=== PATIENT | female | born 1980 | race Caucasian/White ===

== ENCOUNTER 2018-04-16 10:04 | Inpatient (IN) | payer OTHER ==
[2018-04-16] MEDS ORDERED: MINERAL OIL PO PRN (10:43)
[2018-04-16] MEDS ORDERED: AMPICILLIN/NS 2 GM/100 ML 2 GM/100 ML BAG IV ONE (10:43)
[2018-04-16] MEDS ORDERED: STADOL IV PRN (10:43)
[2018-04-16] MEDS ORDERED: XYLOCAINE 2% INFILTRATI ONE (10:43)
[2018-04-16] MEDS ORDERED: BRETHINE IVP PRN (10:43)
[2018-04-16] MEDS ORDERED: BRETHINE SUB-Q PRN (10:43)
[2018-04-16] MEDS ORDERED: ZOFRAN IV PRN ×2 (10:50→21:12)
[2018-04-16] MEDS ORDERED: PITOCin/NS 20 UNIT/1000ML DRIP 20 UNITS/1,000 ML BAG IV SCH ×2 (11:00→19:00)
[2018-04-16] MEDS ORDERED: PITOCin/NS 30 UNIT/500ML 30 UNITS/500 ML BAG IV SCH (11:00)
[2018-04-16] MEDS ORDERED: LACTATED RINGERS 1,000 ML IV SCH ×2 (11:00→19:00)
[2018-04-16 11:13] LABS: Hematocrit 36.2 % (30.3-42.9); Hemoglobin 12.2 gm/dl (10.1-14.3); Mean Corpuscular HGB Conc 34 % (30-34); Mean Corpuscular Volume 84 fl (79-97); Platelet Count 162 K/mm3 (140-440); Red Blood Count 4.29 M/mm3 (3.65-5.03); Red Cell Distribution Width 15.8 % (13.2-15.2)
--- NOTE | 2018-04-16 11:14 | History and Physical Report ---
History of Present Illness Date of examination: 04/16/18 Date of admission: 04/16/18 10:37 Chief complaint: SROM History of present illness: 38 yo, @ 38.6 wks gestation, pt of [facility], presenting to [facility] for gross SROM at approx 1030. She has limited PNC, presenting for NOB @ 29 wks gestation. Her has been complicated by AMA and GBS positive status. She has a history of stillborn @ 36 wks gestation in 2004. Her medical and family history is otherwise non-contributory. Blood type: O positive. Past History Past Medical History: asthma (Childhood) Past Surgical History: no surgical history Family/Genetic History: none Social history: no significant social history, lives with family - Obstetrical History Expected Date of Delivery: 04/24/18 Actual Gestation: 38 Week(s) 6 Day(s) : 10 Para: 8 Hx # Term Pregnancies: 9 Number of Pregnancies: 0 Spontaneous Abortions: 0 Induced : 0 Number of Living Children: 8 #1 Infant Gender: Male year: 1,988 Method of Delivery: Vaginal Gestational age at delivery: 40 Complications: none #2 Gender: Male year: 1,999 Method of Delivery: Vaginal Gestational age at delivery: 40 Complications: none #3 Gender: Female year: 1,999 Method of Delivery: Vaginal Gestational age at delivery: 40 Complications: none #4 Infant Gender: Female year: 2,004 Method of Delivery: Vaginal Complications: none #5 Gender: Female year: 2,005 Method of Delivery: Vaginal Gestational age at delivery: 36 Complications: other (stillborn) #6 Infant Gender: Female year: 2,008 Method of Delivery: Vaginal Gestational age at delivery: 40 Complications: none #7 Infant Gender: Female year: 2,010 Method of Delivery: Vaginal Gestational age at delivery: 40 Complications: none #8 Infant Gender: Male year: 2,015 Method of Delivery: Vaginal Gestational age at delivery: 40 Complications: none #9 Infant Gender: Female year: 2,016 Method of Delivery: Vaginal Gestational age at delivery: 40 Medications and Allergies Allergies Allergy/AdvReac Type Severity Reaction Status Date / Time No Known Allergies Allergy Unverified 04/16/18 10:42 Active Meds: Active Medications Butorphanol Tartrate (Stadol) 2 mg IV Q2H PRN PRN Reason: Pain , Severe (7-10) Ephedrine Sulfate (Ephedrine Sulfate) 10 mg IV Q2M PRN PRN Reason: Hypotension Ampicillin Sodium (Polycillin/Ns 2 Gm/100 Ml) 2 gm in 100 mls @ 100 mls/hr IV ONCE ONE; Protocol Stop: 04/16/18 11:42 Lactated Ringer's (Lactated Ringers) 1,000 mls @ 125 mls/hr IV DIRECT ESTHER Oxytocin/Sodium Chloride (Pitocin/Ns 20 Unit/1000ml Drip) 20 units in 1,000 mls @ 125 mls/hr IV DIRECT ESTHER Oxytocin/Sodium Chloride (Pitocin/Ns 30 Unit/500ml) 30 units in 500 mls @ 1 mls/hr IV TITR ESTHER; Protocol Mineral Oil (Mineral Oil) 30 ml PO QHS PRN PRN Reason: Constipation Ondansetron HCl (Zofran) 4 mg IV Q8H PRN PRN Reason: Nausea And Vomiting Terbutaline Sulfate (Brethine) 0.25 mg SUB-Q ONCE PRN PRN Reason: Hyperstimulation/Hypertonicity Terbutaline Sulfate (Brethine) 0.25 mg IVP ONCE PRN PRN Reason: Hyperstimulation/Hypertonicity Review of Systems All systems: negative (ctxs) Gastrointestinal: other (painful ctxs) - Physical Exam Breasts: Positive: deferred Cardiovascular: Regular rate Lungs: Positive: Clear to auscultation, Normal air movement Abdomen: Positive: other (gravid) Genitourinary (Female): Positive: normal external genitalia, normal perenium Vagina: Positive: other (moderate amt of clear fluids) Uterus: Positive: other (gravid, S=D) Extremities: Positive: normal Deep Tendon Reflex Grade: Normal +2 - Obstetrical FHR: category 1 Uterine Contraction Monitor Mode: External Uterine Contraction Pattern: Irregular Uterine Tone Measurement Phase: Resting Uterine Contraction Intensity: Mild Results Result Diagrams: 04/16/18 10:54 All other labs normal. Assessment and Plan A: 38 yo, @ 38.6 wks gestation AMA O + blood type SROM GBS positive P: Admit to [facility] Initiate GBS protocol per policy Pitocin augmentation Epidural as desired Anticipate normal spontaneous delivery - Patient Problems (1) SROM (spontaneous rupture of membranes) Current Visit: Yes Status: Acute (2) AMA (advanced maternal age) multigravida 35+ Current Visit: Yes Status: Acute (3) Positive GBS test Current Visit: Yes Status: Acute
[2018-04-16] MEDS ORDERED: NARCAN 2 MG/2 ML IV PRN (15:31)
--- NOTE | 2018-04-16 15:31 | Anesthesia Consultation ---
Anesthesia Consult and Med Hx Date of service: 04/16/18 - Airway Anesthetic Teeth Evaluation: Good ROM Head & Neck: Adequate Mental/Hyoid Distance: Adequate Mallampati Class: Class II Intubation Access Assessment: Probably Good - Pre-Operative Health Status ASA Pre-Surgery Classification: ASA2 Proposed Anesthetic Plan: Epidural, Spinal - Pulmonary Hx Asthma: No - Cardiovascular System Hx Hypertension: No - Central Nervous System Hx Seizures: No Hx Psychiatric Problems: No - Endocrine Hx Renal Disease: No Hx Hypothyroidism: No Hx Hyperthyroidism: No - Hematic Hx Sickle Cell Disease: No - Other Systems Hx Alcohol Use: No
[2018-04-16] MEDS ORDERED: fentaNYL-BUPIV 2 MCG/ML-0.125% 200 MCG/100 ML BAG EPIDURAL SCH (16:00)
[2018-04-16] MEDS ORDERED: AMPICILLIN/NS 1 GM/50 ML 1 GM/50 ML BAG IV SCH (17:30)
[2018-04-16] MEDS ORDERED: TYLENOL PO ONE (17:56)
--- NOTE | 2018-04-16 17:58 | Event Note ---
Date: 04/16/18 Arrived at hospital and assumed care of patient at 17:35. Variable FHR decelerations noted with minimal to moderate FHR variability. SVE 9/90/-1. IUPC placed for amnioinfusion. Patient positioned in lateral position and oxygen per face mask at 10 LPM. Pitocin is off. Contractions are every 2-3 minutes and uterus palpates soft between contractions. Temp. 99.5 orally. Tylenol po ordered. BPs stable. Will observe closely.
[2018-04-16] MEDS ORDERED: NACL 0.9% 1000 ML 1,000 ML VG SCH (18:00)
[2018-04-16] MEDS ORDERED: NACL 0.9% IV SCH (18:15)
[2018-04-16] MEDS ORDERED: GENTAMICIN IV SCH (18:15)
--- NOTE | 2018-04-16 18:28 | Event Note ---
Date: 04/16/18 FSE has been placed to better evaluate heart rate. Consulted with Dr. Velazquez re: FHR tracing; variable FHR decelerations and minimal FHR variability and interventions taken (amnioinfusion, lateral positioning, and oxygen). Patient has also received IV fluid bolus. No improvement in heart rate. section called by Dr. Velazquez. heart rate tracing and need for section was explained to patient and family via language line franchise development manager. Patient states she is willing to have section due to heart rate tracing. Orders put in and team notified.
[2018-04-16] MEDS ORDERED: BRETHINE SUB-Q ONE (18:45)
[2018-04-16] MEDS ORDERED: GENTAMICIN/NS 80 MG/100 ML 100 ML IV SCH (19:00)
[2018-04-16] MEDS ORDERED: PEPCID IV ONE (19:00)
[2018-04-16] MEDS ORDERED: REGLAN IV ONE (19:00)
[2018-04-16] MEDS ORDERED: ANCEF/STERILE WATER 2 GM/20 ML 2 GM/20 ML SYRINGE IV NR (19:00)
[2018-04-16] MEDS ORDERED: BICITRA PO ONE (19:00)
[2018-04-16] MEDS ORDERED: METHERGINE IM ONE (19:13)
--- NOTE | 2018-04-16 19:37 | Procedure Note ---
OB Delivery Note - Delivery Date of Delivery: 04/16/18 Surgeon: THERESA VELAZQUEZ Waiter: THU BARBER Estimated blood loss: 200cc - Vaginal Delivery presentation: vertex Delivery position: OA Intrapartum events: mult.variable deceleratio Delivery augmentation: pitocin Delivery monitor: external FHT, external uterine, internal FHT, internal uterine Route of delivery: vacuum extraction Indicators for instrumentation: nonreassuring FHR tracing Delivery placenta: spontaneous Delivery cord: 3 umbilical vessels Episiotomy: none Delivery laceration: none Anesthesia: epidural Delivery comments: Patient was being prepared for section due to heart rate tracing nonreassuring. She began pushing. SVE anterior lip. Dr. Velazquez notified of cervical change and strong urge to push. Patient progressed to complete and vacuum assisted vaginal delivery performed by Dr. Greg Velazquez. Time of 19:17. NICU present for delivery. weight 7 lb. 4 oz. Apgars 7/9. Spontaneous delivery of intact placenta and membranes by gardner mechanism. EBL 200 cc. Fundus firm and midline. Pitocin to IV fluids after delivery of placenta. No lacerations noted. Vaginal sweep negative. Sponge count correct. Cord blood obtained. Placenta to path.
[2018-04-16] MEDS ORDERED: PHENERGAN PO PRN (21:12)
[2018-04-16] MEDS ORDERED: DULCOLAX PR PRN (21:12)
[2018-04-16] MEDS ORDERED: PHENERGAN PR PRN (21:12)
[2018-04-16] MEDS ORDERED: LANSINOH TP PRN (21:12)
[2018-04-16] MEDS ORDERED: TUCKS PAD TP PRN (21:12)
[2018-04-16] MEDS ORDERED: NORCO 5/325 PO PRN (21:12)
[2018-04-16] MEDS ORDERED: BENADRYL PO PRN (21:12)
[2018-04-16] MEDS ORDERED: MILK OF MAGNESIA PO PRN (21:12)
[2018-04-16] MEDS ORDERED: IBUPROFEN PO ONE (21:15)
[2018-04-16] MEDS ORDERED: SODIUM CHLORIDE FLUSH SYRINGE 10 ML IV NR (22:00)
[2018-04-17] MEDS: IBUPROFEN PO SCH ×3 (05:20→18:00)
[2018-04-17 10:38] LABS: Hematocrit 32.6 % (30.3-42.9)
--- NOTE | 2018-04-17 12:43 | Progress Note ---
Assessment and Plan A: day 1 S/P VAVD. P: Continue current management. Anticipate discharge tomorrow. Subjective - Subjective Date of service: 04/17/18 Principal diagnosis: day 1 S/P VAVD Interval history: day 1 S/P VAVD. Doing well. Patient reports small amount of lochia. Voiding without difficulty, ambulating well, tolerating a regular diet. Patient denies headache, cough, chest pain, shortness of breath, leg pain, or abdominal pain. Patient reports: appetite normal, voiding normally, pain well controlled, flatus, ambulating normally, no dizzy ambulation, no nauseated : doing well Objective - Vital Signs Latest vital signs: Vital Signs Temp Pulse Resp BP BP Pulse Ox 04/17/18 08:05 98.1 F 67 20 93/57 04/17/18 06:17 98.3 F 61 18 100/58 99 04/16/18 22:57 98.4 F 71 18 127/69 97 04/16/18 20:56 82 109/68 04/16/18 20:41 86 108/71 04/16/18 20:27 83 114/58 04/16/18 20:26 77 125/62 04/16/18 20:11 79 128/66 04/16/18 19:56 80 120/62 04/16/18 19:41 85 111/57 04/16/18 19:26 88 117/59 04/16/18 18:53 93 H 128/69 04/16/18 18:39 87 122/66 04/16/18 18:23 79 108/52 04/16/18 18:08 82 120/57 04/16/18 17:54 102 H 112/70 04/16/18 17:46 99.5 F 04/16/18 17:39 80 113/65 04/16/18 17:25 86 118/73 04/16/18 17:21 97.2 F L 04/16/18 17:09 85 115/67 04/16/18 16:48 81 115/74 04/16/18 16:38 71 93/54 04/16/18 16:24 102 H 85/51 04/16/18 16:20 87 100 04/16/18 16:15 111 H 98 04/16/18 16:10 104 H 98 04/16/18 16:07 86 101/62 04/16/18 16:05 102 H 104/65 99 04/16/18 16:03 99 H 104/68 04/16/18 16:01 107 H 104/67 04/16/18 16:00 91 H 98 04/16/18 15:59 109 H 102/68 04/16/18 15:57 76 119/66 04/16/18 15:55 87 121/64 98 04/16/18 15:53 86 123/68 04/16/18 15:51 85 123/68 04/16/18 15:50 83 98 04/16/18 15:49 90 127/71 04/16/18 15:47 95 H 124/71 04/16/18 15:46 79 169/77 04/16/18 15:45 72 98 04/16/18 15:43 82 138/72 04/16/18 15:41 98 H 126/69 04/16/18 15:40 91 H 98 04/16/18 15:39 101 H 135/71 04/16/18 15:37 94 H 145/83 04/16/18 15:35 88 98 04/16/18 15:30 91 H 132/81 04/16/18 15:17 90 128/83 04/16/18 15:00 97 H 132/74 04/16/18 14:46 98 H 135/72 04/16/18 14:30 91 H 115/73 04/16/18 14:15 91 H 109/58 04/16/18 14:00 98.6 F 89 125/69 04/16/18 13:46 94 H 116/66 04/16/18 13:32 93 H 120/68 04/16/18 13:15 98 H 113/71 04/16/18 13:00 93 H 116/74 04/16/18 12:45 99 H 118/70 Intake and Output 04/16/18 04/17/18 04/17/18 23:59 07:59 15:59 Intake Total 360 Balance 360 Intake: Oral 360 Other: Total, Intake Amount 360 Estimated Blood Loss 200 - Exam Abdomen: Present: normal appearance, soft. Absent: distention, tenderness, guarding, rigidity Uterus: Present: normal, firm, fundal height below umbilicus. Absent: bogginess, tenderness Extremities: Present: normal. Absent: tenderness, edema
[2018-04-18] MEDS: IBUPROFEN PO SCH ×3 (00:54→12:54)
--- NOTE | 2018-04-18 13:46 | Progress Note ---
Assessment and Plan A: day 2 S/P vacuum assisted vaginal delivery. P: Discharge patient home today. discharge instructions and warning signs discussed with patient in detail. Advised patient to continue taking her vitamins at home. Advised patient to avoid intercourse, lifting and heavy housework, driving. Advised patient to follow up at OB clinic in 6 weeks; informed her she will need to call the OB clinic to obtain an appointment. Patient voiced understanding of all instructions. Subjective - Subjective Date of service: 04/18/18 Principal diagnosis: day 2 S/P VAVD Interval history: day 2 S/P VAVD. Doing well. Patient desires discharge today. Patient reports small amount of lochia. Voiding without difficulty, ambulating well, tolerating a regular diet. Patient denies headache, cough, chest pain, shortness of breath, leg pain, nausea or vomiting, or abdominal pain. Patient reports: appetite normal, voiding normally, pain well controlled, flatus , ambulating normally, no dizzy ambulation, no nauseated : doing well Objective - Vital Signs Latest vital signs: Vital Signs Temp Pulse Resp BP BP Pulse Ox 04/18/18 08:50 97.6 F 65 20 116/77 04/18/18 06:30 18 04/18/18 05:30 18 04/18/18 03:41 98.1 F 69 18 105/64 97 04/18/18 01:54 18 04/18/18 00:54 18 04/17/18 19:00 18 04/17/18 17:09 98.2 F 71 20 91/56 Intake and Output 04/17/18 04/18/18 04/18/18 22:59 07:59 15:59 Intake Total 360 Output Total Balance 360 Intake: Oral 360 Intake, Free Water Output: Urine Void Other: Total, Intake Amount 360 Total, Output Amount # Voids Void 1 - Exam Cardiovascular: Present: Regular rate, Normal S1, Normal S2 Lungs: Present: Clear to auscultation Abdomen: Present: normal appearance, soft. Absent: distention, tenderness, guarding, rigidity Uterus: Present: normal, firm, fundal height below umbilicus. Absent: bogginess, tenderness Extremities: Present: normal. Absent: tenderness, edema
--- NOTE | 2018-04-18 13:48 | Discharge Summary ---
Providers - Providers Date of Admission: 04/16/18 10:37 Date of discharge: 04/18/18 Attending physician: MARIANO HOWE None Primary care physician: MARIANO HOWE Hospitalization Reason for admission: rupture of membranes Delivery: vacuum extraction Episiotomy: none Laceration: none Other procedures: none complications: none Discharge diagnosis: IUP at term delivered baby: female Pertinent studies: Labs Hospital course: Normal hospital course Condition at discharge: Good Disposition: DC-01 TO HOME OR SELFCARE - Discharge Diagnoses (1) Term delivered Status: Acute Plan - Provider Discharge Summary Activity: routine, no sex for 6 weeks, no heavy lifting 4 weeks, no strenuous exercise Diet: routine Instructions: routine Additional instructions: Call your doctor immediately for: * Fever > 100.5 * Heavy vaginal bleeding ( >1 pad per hour) * Severe persistent headache * Shortness of breath * Reddened, hot, painful area to leg or breast - Follow up plan Follow up: MARIANO HOWE MD [Primary Care Provider] - 6 Weeks
[2018-04-18 17:16] VITALS: BP 133/64
== END 2018-04-18 16:40 | disposition home or self-care (01) | DRG 807 ==
LOC: TRG 10:04 → LD 10:37 → OB 22:42
PROVIDERS: ADMIT Obstetrics & Gynecology; ATTEND Obstetrics & Gynecology
PROC: 10D07Z6 Extraction of Products of Conception, Vacuum, Via Natural or Artificial Opening (ICD-10-PCS; principal; 2018-04-16)
PROC: 10H07YZ Insertion of Other Device into Products of Conception, Via Natural or Artificial Opening (ICD-10-PCS; 2018-04-16)
PROC: 3E0E7GC Introduction of Other Therapeutic Substance into Products of Conception, Via Natural or Artificial Opening (ICD-10-PCS; 2018-04-16)
PROC: 3E0R3BZ Introduction of Anesthetic Agent into Spinal Canal, Percutaneous Approach (ICD-10-PCS; 2018-04-16)
PROC: 00HU33Z Insertion of Infusion Device into Spinal Canal, Percutaneous Approach (ICD-10-PCS; 2018-04-16)
DX: O99.824 Streptococcus B carrier state complicating childbirth (principal); J45.909 Unspecified asthma, uncomplicated; O99.52 Diseases of the respiratory system complicating childbirth; O76 Abnormality in fetal heart rate and rhythm complicating labor and delivery; Z37.0 Single live birth; Z3A.38 38 weeks gestation of pregnancy
CPT/HCPCS: 36415; 85014; 85018; 85027; 86592; 86850; 86900; 86901; 88307; G0378; J0290; J0690; J1580; J2210; J2590; J2765; J7030; J7120

== ENCOUNTER 2019-05-23 15:36 | Inpatient (IN) | payer OTHER ==
[2019-05-23] MEDS ORDERED: LACTATED RINGERS 500 ML IV ONE (16:09)
[2019-05-23] MEDS ORDERED: MAGNESIUM SULFATE 4 GM/100 ML BAG IV ONE (16:14)
[2019-05-23] MEDS ORDERED: AMPICILLIN/NS 2 GM/100 ML 2 GM/100 ML BAG IV ONE (16:15)
[2019-05-23 16:31] LABS: Bilirubin,Urine NEG (Negative); Blood,Urine LG (Negative); Color,Urine Amber (Yellow); Mucus,Urine FEW /HPF; Protein,Urine <15 mg/dL mg/dL (Negative)
[2019-05-23 16:53] LABS: Basophils % (Auto) 0.5 % (0.0-1.8); Eosinophils # (Auto) 0.1 K/mm3 (0.0-0.4); Hematocrit 39.8 % (30.3-42.9); Hemoglobin 13.3 gm/dl (10.1-14.3); Lymphocytes # (Auto) 1.6 K/mm3 (1.2-5.4); Lymphocytes % (Auto) 24.5 % (13.4-35.0); Mean Corpuscular HGB Conc 33 % (30-34); Mean Corpuscular Volume 85 fl (79-97); Monocytes # (Auto) 0.3 K/mm3 (0.0-0.8); Monocytes % (Auto) 5.2 % (0.0-7.3); Platelet Count 103 K/mm3 (140-440); Red Blood Count 4.66 M/mm3 (3.65-5.03); Red Cell Distribution Width 15.1 % (13.2-15.2)
[2019-05-23] MEDS ORDERED: MAGNESIUM SULFATE 40GM/1000ML 40 GM/1,000 ML BAG IV SCH (17:00)
[2019-05-23] MEDS: BETAMET ACET/BETAMET NA PH 6 MG/ML INJ 5 ML MDV IM SCH (17:14)
--- NOTE | 2019-05-23 19:32 | History and Physical Report ---
History of Present Illness Date of examination: 05/23/19 Date of admission: 05/23/19 15:37 Chief complaint: contractions, vaginal bleeding History of present illness: 40yp at 34+3/7 weeks with contractions and vaginal bleeding. [facility] hx of stillbirth Uneventful to date, late [facility] Past History Past Medical History: no pertinent history Past Surgical History: no surgical history Family/Genetic History: none Social history: no significant social history - Obstetrical History : 10 Medications and Allergies Allergies Allergy/AdvReac Type Severity Reaction Status Date / Time No Known Allergies Allergy Unverified 05/23/19 15:56 Home Medications Medication Instructions Recorded Confirmed Last Taken Type No Known Home Medications [No 04/16/18 05/23/19 Unknown History Reported Home Medications] Active Meds: Active Medications Betamethasone Acet/Betameth SodPhos (Celestone Soluspan) 12 mg IM Q24H ESTHER Stop: 05/24/19 17:01 Last Admin: 05/23/19 17:14 Dose: 12 mg Documented by: Magnesium Sulfate (Magnesium Sulfate 40gm/1000ml) 40 gm in 1,000 mls @ 50 mls/hr IV DIRECT ESTHER Last Admin: 05/23/19 18:15 Dose: 2 gm/hr, 50 mls/hr Documented by: Ampicillin Sodium (Ampicillin/Ns 1 Gm/50 Ml) 1 gm in 50 mls @ 100 mls/hr IV Q6HR ESTHER; Protocol - Vital Signs Vital signs: Vital Signs Pulse BP 103 H 134/90 05/23/19 15:57 05/23/19 15:57 Temp Pulse Resp BP Pulse Ox 98.6 F 96 H 16 132/78 98 05/23/19 17:03 05/23/19 19:25 05/23/19 17:03 05/23/19 19:09 05/23/19 19:25 - Physical Exam Breasts: Positive: deferred Cardiovascular: Regular rate Lungs: Positive: Clear to auscultation Abdomen: Positive: normal appearance - Obstetrical FHR: category 1 Cervical Dilatation: 4 Cervical Effacement Percentage: 50 station: -2 Uterine Contraction Pattern: Irregular Uterine Contraction Intensity: Mild Results Result Diagrams: 05/23/19 16:25 Abnormal lab results 05/23/19 Range/Units 16:25 Plt Count 103 L (140-440) K/mm3 All other labs normal. Assessment and Plan contractions, vaginal bleeding Plan: steroids magnesium sulfate fluids abx labs US for placetal evaluation, presentation and ALIX delivery for maternal/ indication Shantanu Sanchez MD
[2019-05-23] MEDS ORDERED: TERBUTALINE 1 MG/1 ML INJ SUB-Q ONE (20:26)
--- NOTE | 2019-05-23 21:47 | Ultrasound Report ---
Examination: Ultrasound Obstetrical Limited, 05/23/2019 INDICATION: labor. COMPARISON: No prior studies are available for comparison. FINDINGS: There is a single living intrauterine with the head in the cephalic position. Amniotic flui d index measures 17.4 cm, which is within normal limits. The heart rate is 142 beats per minute . Placenta is anterior and left lateral and grade 2. IMPRESSION: 1. Limited obstetrical ultrasound with details as above. Signer Name: Araceli Sorto MD Signed: 05/23/2019 9:42 PM Workstation Name: [id number]
[2019-05-23] MEDS ORDERED: BUTORPHANOL 2 MG/1 ML INJ IV ONE (23:15)
[2019-05-23] MEDS: AMPICILLIN/NS 1 GM/50 ML 1 GM/50 ML BAG IV SCH (23:34)
[2019-05-24] MEDS: LACTATED RINGERS 1,000 ML IV SCH ×3 (00:15→20:42)
[2019-05-24] MEDS: AMPICILLIN/NS 1 GM/50 ML 1 GM/50 ML BAG IV SCH ×2 (06:01→17:59)
--- NOTE | 2019-05-24 13:40 | Progress Note ---
Assessment and Plan - Patient Problems (1) labor in third trimester Current Visit: Yes Status: Acute Plan to address problem: Patient's current managements which included the antibiotics, magnesium sulfate and inpatient observation will continue. Subjective - Subjective Date of service: 05/24/19 Principal diagnosis: labor Interval history: 34+5wks. had no complaints this morning. Patient reports: movement normal, no new complaints, no loss of fluid, no vaginal bleeding, no contractions Objective - Vital Signs Vital Signs: Vital Signs - 12hr 05/24/19 05/24/19 05/24/19 01:39 01:41 01:42 Temperature Pulse Rate 103 H 98 H 103 H Respiratory Rate Blood Pressure 132/79 Blood Pressure [Left] O2 Sat by Pulse 94 96 Oximetry 05/24/19 05/24/19 05/24/19 01:47 01:52 01:57 Temperature Pulse Rate 110 H 112 H 110 H Respiratory Rate Blood Pressure Blood Pressure [Left] O2 Sat by Pulse 97 96 97 Oximetry 05/24/19 05/24/19 05/24/19 02:02 02:07 02:09 Temperature Pulse Rate 104 H 98 H 100 H Respiratory Rate Blood Pressure 110/70 Blood Pressure [Left] O2 Sat by Pulse 95 94 Oximetry 05/24/19 05/24/19 05/24/19 02:12 02:15 02:16 Temperature Pulse Rate 97 H 95 H 98 H Respiratory 18 Rate Blood Pressure Blood Pressure 110/70 [Left] O2 Sat by Pulse 95 95 94 Oximetry 05/24/19 05/24/19 05/24/19 02:17 02:22 02:24 Temperature Pulse Rate 101 H 90 97 H Respiratory Rate Blood Pressure Blood Pressure [Left] O2 Sat by Pulse 94 95 94 Oximetry 05/24/19 05/24/19 05/24/19 02:27 02:32 02:37 Temperature Pulse Rate 98 H 94 H 98 H Respiratory Rate Blood Pressure Blood Pressure [Left] O2 Sat by Pulse 95 95 96 Oximetry 05/24/19 05/24/19 05/24/19 02:40 02:42 02:47 Temperature Pulse Rate 93 H 98 H 96 H Respiratory Rate Blood Pressure 128/76 Blood Pressure [Left] O2 Sat by Pulse 96 96 Oximetry 05/24/19 05/24/19 05/24/19 02:52 02:54 02:57 Temperature Pulse Rate 96 H 101 H 99 H Respiratory Rate Blood Pressure Blood Pressure [Left] O2 Sat by Pulse 95 94 94 Oximetry 05/24/19 05/24/19 05/24/19 03:02 03:07 03:11 Temperature Pulse Rate 95 H 101 H 99 H Respiratory Rate Blood Pressure 124/77 Blood Pressure [Left] O2 Sat by Pulse 96 96 Oximetry 05/24/19 05/24/19 05/24/19 03:12 03:17 03:22 Temperature Pulse Rate 95 H 95 H 91 H Respiratory Rate Blood Pressure Blood Pressure [Left] O2 Sat by Pulse 97 96 96 Oximetry 05/24/19 05/24/19 05/24/19 03:27 03:32 03:37 Temperature Pulse Rate 99 H 91 H 91 H Respiratory Rate Blood Pressure Blood Pressure [Left] O2 Sat by Pulse 96 96 96 Oximetry 05/24/19 05/24/19 05/24/19 03:40 03:42 03:45 Temperature 98.0 F Pulse Rate 92 H 88 92 H Respiratory 18 Rate Blood Pressure 128/78 Blood Pressure 128/78 [Left] O2 Sat by Pulse 96 95 Oximetry 05/24/19 05/24/19 05/24/19 03:47 03:52 03:57 Temperature Pulse Rate 101 H 101 H 87 Respiratory Rate Blood Pressure Blood Pressure [Left] O2 Sat by Pulse 97 96 96 Oximetry 05/24/19 05/24/19 05/24/19 04:02 04:07 04:09 Temperature Pulse Rate 87 88 89 Respiratory Rate Blood Pressure 113/64 Blood Pressure [Left] O2 Sat by Pulse 96 96 Oximetry 05/24/19 05/24/19 05/24/19 04:12 04:17 04:22 Temperature Pulse Rate 88 88 88 Respiratory Rate Blood Pressure Blood Pressure [Left] O2 Sat by Pulse 95 95 95 Oximetry 05/24/19 05/24/19 05/24/19 04:26 04:27 04:32 Temperature Pulse Rate 87 86 85 Respiratory Rate Blood Pressure Blood Pressure [Left] O2 Sat by Pulse 94 96 95 Oximetry 05/24/19 05/24/19 05/24/19 04:35 04:37 04:39 Temperature Pulse Rate 93 H 86 85 Respiratory Rate Blood Pressure 105/57 Blood Pressure [Left] O2 Sat by Pulse 94 95 Oximetry 05/24/19 05/24/19 05/24/19 04:42 04:45 04:47 Temperature Pulse Rate 83 83 84 Respiratory Rate Blood Pressure Blood Pressure [Left] O2 Sat by Pulse 95 94 94 Oximetry 05/24/19 05/24/19 05/24/19 04:52 04:57 05:02 Temperature Pulse Rate 86 90 94 H Respiratory Rate Blood Pressure Blood Pressure [Left] O2 Sat by Pulse 95 96 96 Oximetry 05/24/19 05/24/19 05/24/19 05:04 05:07 05:09 Temperature Pulse Rate 85 93 H Respiratory 18 18 Rate Blood Pressure 120/68 Blood Pressure [Left] O2 Sat by Pulse 95 96 95 Oximetry 05/24/19 05/24/19 05/24/19 05:12 05:15 05:17 Temperature Pulse Rate 96 H 87 89 Respiratory Rate Blood Pressure Blood Pressure [Left] O2 Sat by Pulse 95 94 94 Oximetry 05/24/19 05/24/19 05/24/19 05:20 05:22 05:25 Temperature Pulse Rate 86 87 86 Respiratory Rate Blood Pressure Blood Pressure [Left] O2 Sat by Pulse 94 94 94 Oximetry 05/24/19 05/24/19 05/24/19 05:27 05:32 05:37 Temperature Pulse Rate 85 84 94 H Respiratory Rate Blood Pressure Blood Pressure [Left] O2 Sat by Pulse 94 94 95 Oximetry 05/24/19 05/24/19 05/24/19 05:40 05:42 05:47 Temperature Pulse Rate 93 H 91 H 84 Respiratory Rate Blood Pressure 113/65 Blood Pressure [Left] O2 Sat by Pulse 94 94 96 Oximetry 05/24/19 05/24/19 05/24/19 05:52 05:57 06:02 Temperature Pulse Rate 84 86 82 Respiratory Rate Blood Pressure Blood Pressure [Left] O2 Sat by Pulse 95 95 96 Oximetry 05/24/19 05/24/19 05/24/19 06:05 06:07 06:09 Temperature 97.8 F Pulse Rate 83 81 83 Respiratory 18 Rate Blood Pressure 120/67 Blood Pressure 113/65 [Left] O2 Sat by Pulse 96 96 Oximetry 05/24/19 05/24/19 05/24/19 06:12 06:16 06:17 Temperature Pulse Rate 81 78 79 Respiratory Rate Blood Pressure Blood Pressure [Left] O2 Sat by Pulse 96 94 96 Oximetry 05/24/19 05/24/19 05/24/19 06:22 06:27 06:32 Temperature Pulse Rate 80 80 80 Respiratory Rate Blood Pressure Blood Pressure [Left] O2 Sat by Pulse 96 96 96 Oximetry 05/24/19 05/24/19 05/24/19 06:37 06:39 06:42 Temperature Pulse Rate 80 79 81 Respiratory Rate Blood Pressure 115/64 Blood Pressure [Left] O2 Sat by Pulse 96 95 Oximetry 05/24/19 05/24/19 05/24/19 06:45 06:47 06:52 Temperature Pulse Rate 80 82 81 Respiratory Rate Blood Pressure Blood Pressure [Left] O2 Sat by Pulse 94 94 96 Oximetry 05/24/19 05/24/19 05/24/19 06:57 07:02 07:07 Temperature Pulse Rate 80 84 82 Respiratory Rate Blood Pressure Blood Pressure [Left] O2 Sat by Pulse 96 95 97 Oximetry 05/24/19 05/24/19 05/24/19 07:09 07:12 07:17 Temperature Pulse Rate 81 79 79 Respiratory Rate Blood Pressure 111/66 Blood Pressure [Left] O2 Sat by Pulse 95 95 Oximetry 05/24/19 05/24/19 05/24/19 07:20 07:22 07:26 Temperature Pulse Rate 79 81 79 Respiratory Rate Blood Pressure Blood Pressure [Left] O2 Sat by Pulse 94 95 94 Oximetry 05/24/19 05/24/19 05/24/19 07:27 07:32 07:35 Temperature Pulse Rate 79 81 80 Respiratory Rate Blood Pressure Blood Pressure [Left] O2 Sat by Pulse 94 94 94 Oximetry 05/24/19 05/24/19 05/24/19 07:37 07:39 07:42 Temperature Pulse Rate 79 78 86 Respiratory Rate Blood Pressure 109/57 Blood Pressure [Left] O2 Sat by Pulse 94 94 Oximetry 05/24/19 05/24/19 05/24/19 07:44 07:47 07:52 Temperature Pulse Rate 77 78 78 Respiratory Rate Blood Pressure Blood Pressure [Left] O2 Sat by Pulse 94 94 95 Oximetry 05/24/19 05/24/19 05/24/19 07:53 07:57 07:58 Temperature Pulse Rate 78 76 83 Respiratory Rate Blood Pressure Blood Pressure [Left] O2 Sat by Pulse 94 94 94 Oximetry 05/24/19 05/24/19 05/24/19 08:02 08:04 08:07 Temperature Pulse Rate 80 79 76 Respiratory Rate Blood Pressure Blood Pressure [Left] O2 Sat by Pulse 94 94 95 Oximetry 05/24/19 05/24/19 05/24/19 08:10 08:12 08:13 Temperature Pulse Rate 76 81 78 Respiratory Rate Blood Pressure 113/53 Blood Pressure [Left] O2 Sat by Pulse 95 94 Oximetry 05/24/19 05/24/19 05/24/19 08:17 08:19 08:22 Temperature Pulse Rate 76 76 75 Respiratory Rate Blood Pressure Blood Pressure [Left] O2 Sat by Pulse 95 94 95 Oximetry 05/24/19 05/24/19 05/24/19 08:25 08:27 08:32 Temperature Pulse Rate 75 74 75 Respiratory Rate Blood Pressure Blood Pressure [Left] O2 Sat by Pulse 94 94 95 Oximetry 05/24/19 05/24/19 05/24/19 08:34 08:37 08:40 Temperature Pulse Rate 75 77 75 Respiratory Rate Blood Pressure 97/55 Blood Pressure [Left] O2 Sat by Pulse 94 94 94 Oximetry 05/24/19 05/24/19 05/24/19 08:42 08:45 08:47 Temperature Pulse Rate 76 75 74 Respiratory Rate Blood Pressure Blood Pressure [Left] O2 Sat by Pulse 94 94 95 Oximetry 05/24/19 05/24/19 05/24/19 08:50 08:52 08:55 Temperature Pulse Rate 73 77 84 Respiratory Rate Blood Pressure Blood Pressure [Left] O2 Sat by Pulse 94 94 94 Oximetry 05/24/19 05/24/19 05/24/19 08:57 09:02 09:07 Temperature Pulse Rate 74 74 77 Respiratory Rate Blood Pressure Blood Pressure [Left] O2 Sat by Pulse 95 95 93 Oximetry 05/24/19 05/24/19 05/24/19 09:10 09:12 09:17 Temperature Pulse Rate 78 83 75 Respiratory Rate Blood Pressure 111/57 Blood Pressure [Left] O2 Sat by Pulse 95 95 Oximetry 05/24/19 05/24/19 05/24/19 09:22 09:27 09:32 Temperature Pulse Rate 77 84 81 Respiratory Rate Blood Pressure Blood Pressure [Left] O2 Sat by Pulse 96 97 96 Oximetry 05/24/19 05/24/19 05/24/19 09:37 09:39 09:42 Temperature Pulse Rate 76 78 87 Respiratory Rate Blood Pressure 101/58 Blood Pressure [Left] O2 Sat by Pulse 97 96 Oximetry 05/24/19 05/24/19 05/24/19 09:47 09:52 09:56 Temperature 98.1 F Pulse Rate 84 84 90 Respiratory 18 Rate Blood Pressure Blood Pressure [Left] O2 Sat by Pulse 96 95 96 Oximetry 05/24/19 05/24/19 05/24/19 09:57 10:02 10:07 Temperature Pulse Rate 85 81 78 Respiratory Rate Blood Pressure Blood Pressure [Left] O2 Sat by Pulse 96 96 96 Oximetry 05/24/19 05/24/19 05/24/19 10:12 10:17 10:22 Temperature Pulse Rate 79 82 82 Respiratory Rate Blood Pressure Blood Pressure [Left] O2 Sat by Pulse 96 96 96 Oximetry 05/24/19 05/24/19 05/24/19 10:27 10:32 10:37 Temperature Pulse Rate 89 83 83 Respiratory Rate Blood Pressure Blood Pressure [Left] O2 Sat by Pulse 97 96 96 Oximetry 05/24/19 05/24/19 05/24/19 10:40 10:42 10:44 Temperature 97.4 F L Pulse Rate 86 83 Respiratory Rate Blood Pressure 107/62 Blood Pressure [Left] O2 Sat by Pulse 97 Oximetry 05/24/19 05/24/19 05/24/19 10:47 10:52 10:57 Temperature Pulse Rate 77 76 78 Respiratory Rate Blood Pressure Blood Pressure [Left] O2 Sat by Pulse 96 96 96 Oximetry 05/24/19 05/24/19 05/24/19 11:02 11:07 11:12 Temperature Pulse Rate 76 75 84 Respiratory Rate Blood Pressure Blood Pressure [Left] O2 Sat by Pulse 96 96 96 Oximetry 05/24/19 05/24/19 05/24/19 11:17 11:22 11:27 Temperature Pulse Rate 81 78 79 Respiratory Rate Blood Pressure Blood Pressure [Left] O2 Sat by Pulse 95 97 97 Oximetry 05/24/19 05/24/19 05/24/19 11:32 11:37 11:42 Temperature Pulse Rate 75 73 77 Respiratory Rate Blood Pressure Blood Pressure [Left] O2 Sat by Pulse 97 97 96 Oximetry 05/24/19 05/24/19 05/24/19 11:47 11:52 11:57 Temperature Pulse Rate 70 73 83 Respiratory Rate Blood Pressure Blood Pressure [Left] O2 Sat by Pulse 96 96 97 Oximetry 05/24/19 05/24/19 05/24/19 12:02 12:07 12:12 Temperature Pulse Rate 79 68 72 Respiratory Rate Blood Pressure Blood Pressure [Left] O2 Sat by Pulse 95 96 97 Oximetry 05/24/19 05/24/19 05/24/19 12:17 12:22 12:23 Temperature Pulse Rate 69 69 71 Respiratory Rate Blood Pressure Blood Pressure [Left] O2 Sat by Pulse 95 95 94 Oximetry 05/24/19 05/24/19 05/24/19 12:27 12:28 12:32 Temperature Pulse Rate 68 68 Respiratory Rate Blood Pressure Blood Pressure [Left] O2 Sat by Pulse 95 94 96 Oximetry 05/24/19 05/24/19 05/24/19 12:37 12:42 12:47 Temperature Pulse Rate 74 74 70 Respiratory Rate Blood Pressure Blood Pressure [Left] O2 Sat by Pulse 96 96 96 Oximetry 05/24/19 05/24/19 05/24/19 12:52 12:57 13:01 Temperature Pulse Rate 66 67 67 Respiratory Rate Blood Pressure Blood Pressure [Left] O2 Sat by Pulse 95 95 94 Oximetry 05/24/19 05/24/19 05/24/19 13:02 13:07 13:12 Temperature Pulse Rate 65 65 75 Respiratory Rate Blood Pressure Blood Pressure [Left] O2 Sat by Pulse 95 96 96 Oximetry 05/24/19 05/24/19 05/24/19 13:17 13:22 13:27 Temperature Pulse Rate 73 68 67 Respiratory Rate Blood Pressure Blood Pressure [Left] O2 Sat by Pulse 97 97 96 Oximetry 05/24/19 13:32 Temperature Pulse Rate 73 Respiratory Rate Blood Pressure Blood Pressure [Left] O2 Sat by Pulse 96 Oximetry - Exam Lungs: Normal air movement Abdomen: Present: normal appearance, distention. Absent: tenderness, guarding FHR: category 1 Deep Tendon Reflex Grade: Normal +2 - Labs Labs: Abnormal Labs 05/23/19 05/24/19 05/24/19 16:25 00:17 06:35 Plt Count 103 L Magnesium 6.00 H 6.80 H Laboratory Results - last 24 hr 05/23/19 05/23/19 05/23/19 16:25 16:25 Unknown WBC 6.7 RBC 4.66 Hgb 13.3 Hct 39.8 MCV 85 MCH 28 MCHC 33 RDW 15.1 Plt Count 103 L Lymph % (Auto) 24.5 [place] % (Auto) 5.2 Eos % (Auto) 1.0 Baso % (Auto) 0.5 Lymph # 1.6 Worth # 0.3 Eos # 0.1 Baso # 0.0 Seg Neutrophils % 68.8 Seg Neutrophils # 4.6 Magnesium Urine Color Madie Urine Turbidity Clear Urine pH 6.0 Ur Specific [place] 1.014 Urine Protein <15 mg/dl Urine Glucose (UA) Neg Urine Ketones Neg Urine Blood Lg Urine Nitrite Neg Urine Bilirubin Neg Urine Urobilinogen 4.0 Ur Leukocyte Esterase Tr Urine WBC (Auto) 3.0 Urine RBC (Auto) 19.0 U Epithel Cells (Auto) 8.0 Urine Mucus Few Blood Type O POSITIVE Antibody Screen Negative 05/24/19 05/24/19 00:17 06:35 WBC RBC Hgb Hct MCV MCH MCHC RDW Plt Count Lymph % (Auto) [place] % (Auto) Eos % (Auto) Baso % (Auto) Lymph # [place] # Eos # Baso # Seg Neutrophils % Seg Neutrophils # Magnesium 6.00 H 6.80 H Urine Color Urine Turbidity Urine pH Ur Specific [place] Urine Protein Urine Glucose (UA) Urine Ketones Urine Blood Urine Nitrite Urine Bilirubin Urine Urobilinogen Ur Leukocyte Esterase Urine WBC (Auto) Urine RBC (Auto) U Epithel Cells (Auto) Urine Mucus Blood Type Antibody Screen
[2019-05-24] MEDS ORDERED: ONDANSETRON 4 MG/2 ML INJ ONE (15:57)
[2019-05-24] MEDS ORDERED: ePHEDrine SULFATE 50 MG/1 ML INJ IV PRN (16:51)
[2019-05-24] MEDS ORDERED: MINERAL OIL 30 ML ORAL LIQD PO PRN (16:51)
[2019-05-24] MEDS ORDERED: TERBUTALINE 1 MG/1 ML INJ SUB-Q PRN (16:51)
[2019-05-24] MEDS ORDERED: BUTORPHANOL 2 MG/1 ML INJ IV PRN ×2 (16:51)
[2019-05-24] MEDS ORDERED: NalbUPHINE 10 MG/1 ML INJ IV PRN (16:51)
[2019-05-24] MEDS ORDERED: LIDOCAINE (2%) 20 MG/1 ML VIAL 20 ML MDV INFILTRATI ONE (16:51)
[2019-05-24] MEDS ORDERED: ONDANSETRON 4 MG/2 ML INJ IV PRN (16:51)
[2019-05-24] MEDS ORDERED: TERBUTALINE 1 MG/1 ML INJ IVP PRN (16:51)
[2019-05-24] MEDS ORDERED: fentaNYL 100 MCG/2 ML INJ IV PRN (16:51)
[2019-05-24] MEDS: BETAMET ACET/BETAMET NA PH 6 MG/ML INJ 5 ML MDV IM SCH (17:10)
[2019-05-24 20:28] LABS: Hematocrit 35.7 % (30.3-42.9); Hemoglobin 12.1 gm/dl (10.1-14.3); Mean Corpuscular HGB Conc 34 % (30-34); Mean Corpuscular Volume 85 fl (79-97); Platelet Count 104 K/mm3 (140-440); Red Blood Count 4.19 M/mm3 (3.65-5.03); Red Cell Distribution Width 15.5 % (13.2-15.2)
[2019-05-25] MEDS: AMPICILLIN/NS 1 GM/50 ML 1 GM/50 ML BAG IV SCH ×4 (00:27→17:16)
--- NOTE | 2019-05-25 11:35 | Progress Note ---
Assessment and Plan - Patient Problems (1) labor in third trimester Current Visit: Yes Status: Acute Plan to address problem: PT is Betamethasone complete and MgSO4 is off since yesterday. RN just examined pt and she is still 4 cm. Ctxs increased recently. Will give Stadol. Cont to observe since ctxs are increasing. Pt agrees with plan. Subjective - Subjective Date of service: 05/25/19 Principal diagnosis: labor Patient reports: movement normal, contractions (Spoke with pt via tubing tester. PT starting to feel ctxs more and notes some bloody show. good FM. No LOF. ), no loss of fluid Objective - Vital Signs Vital Signs: Vital Signs - 12hr 05/24/19 05/24/19 05/24/19 23:49 23:54 23:56 Temperature Pulse Rate 69 69 65 Respiratory Rate Blood Pressure 109/60 Blood Pressure [Left] O2 Sat by Pulse 96 97 Oximetry 05/24/19 05/25/19 05/25/19 23:59 00:04 00:09 Temperature Pulse Rate 70 63 70 Respiratory Rate Blood Pressure Blood Pressure [Left] O2 Sat by Pulse 97 98 98 Oximetry 05/25/19 05/25/19 05/25/19 00:14 00:19 00:24 Temperature Pulse Rate 65 66 71 Respiratory Rate Blood Pressure Blood Pressure [Left] O2 Sat by Pulse 97 97 97 Oximetry 05/25/19 05/25/19 05/25/19 00:26 00:29 00:34 Temperature Pulse Rate 68 65 64 Respiratory Rate Blood Pressure 115/65 Blood Pressure [Left] O2 Sat by Pulse 97 97 Oximetry 05/25/19 05/25/19 05/25/19 00:39 00:44 00:49 Temperature Pulse Rate 72 70 63 Respiratory Rate Blood Pressure Blood Pressure [Left] O2 Sat by Pulse 97 97 97 Oximetry 05/25/19 05/25/19 05/25/19 00:54 00:57 00:59 Temperature Pulse Rate 60 64 61 Respiratory Rate Blood Pressure 100/56 Blood Pressure [Left] O2 Sat by Pulse 97 96 Oximetry 05/25/19 05/25/19 05/25/19 01:04 01:09 01:14 Temperature Pulse Rate 61 62 65 Respiratory Rate Blood Pressure Blood Pressure [Left] O2 Sat by Pulse 97 96 97 Oximetry 05/25/19 05/25/19 05/25/19 01:19 01:24 01:26 Temperature Pulse Rate 70 72 66 Respiratory Rate Blood Pressure 117/60 Blood Pressure [Left] O2 Sat by Pulse 96 97 Oximetry 05/25/19 05/25/19 05/25/19 01:29 01:34 01:39 Temperature Pulse Rate 63 70 63 Respiratory Rate Blood Pressure Blood Pressure [Left] O2 Sat by Pulse 97 97 97 Oximetry 05/25/19 05/25/19 05/25/19 01:44 01:49 01:54 Temperature Pulse Rate 62 66 58 L Respiratory Rate Blood Pressure Blood Pressure [Left] O2 Sat by Pulse 97 97 97 Oximetry 05/25/19 05/25/19 05/25/19 01:58 01:59 02:04 Temperature Pulse Rate 61 70 72 Respiratory Rate Blood Pressure 110/61 Blood Pressure [Left] O2 Sat by Pulse 97 95 Oximetry 05/25/19 05/25/19 05/25/19 02:10 02:15 02:20 Temperature Pulse Rate 71 62 66 Respiratory Rate Blood Pressure Blood Pressure [Left] O2 Sat by Pulse 96 97 96 Oximetry 05/25/19 05/25/19 05/25/19 02:25 02:26 02:31 Temperature Pulse Rate 70 61 60 Respiratory Rate Blood Pressure 123/65 Blood Pressure [Left] O2 Sat by Pulse 96 97 Oximetry 05/25/19 05/25/19 05/25/19 02:36 02:41 02:44 Temperature Pulse Rate 82 63 Respiratory Rate Blood Pressure Blood Pressure [Left] O2 Sat by Pulse 96 97 85 Oximetry 05/25/19 05/25/19 05/25/19 02:46 02:51 02:58 Temperature Pulse Rate 64 62 79 Respiratory Rate Blood Pressure Blood Pressure [Left] O2 Sat by Pulse 97 96 97 Oximetry 05/25/19 05/25/19 05/25/19 03:00 03:01 03:03 Temperature 97.0 F L Pulse Rate 63 62 62 Respiratory 18 Rate Blood Pressure 118/71 Blood Pressure 118/71 [Left] O2 Sat by Pulse 98 98 Oximetry 05/25/19 05/25/19 05/25/19 03:08 03:13 03:18 Temperature Pulse Rate 63 57 L 56 L Respiratory Rate Blood Pressure Blood Pressure [Left] O2 Sat by Pulse 98 97 96 Oximetry 05/25/19 05/25/19 05/25/19 03:23 03:27 03:28 Temperature Pulse Rate 57 L 51 L 54 L Respiratory Rate Blood Pressure 112/61 Blood Pressure [Left] O2 Sat by Pulse 96 95 Oximetry 05/25/19 05/25/19 05/25/19 03:33 03:38 03:43 Temperature Pulse Rate 54 L 55 L 56 L Respiratory Rate Blood Pressure Blood Pressure [Left] O2 Sat by Pulse 95 95 94 Oximetry 05/25/19 05/25/19 05/25/19 03:44 03:48 03:53 Temperature Pulse Rate 57 L 59 L 58 L Respiratory Rate Blood Pressure Blood Pressure [Left] O2 Sat by Pulse 94 95 95 Oximetry 05/25/19 05/25/19 05/25/19 03:57 03:58 03:59 Temperature Pulse Rate 58 L 58 L 58 L Respiratory Rate Blood Pressure 107/58 Blood Pressure [Left] O2 Sat by Pulse 95 94 Oximetry 05/25/19 05/25/19 05/25/19 04:03 04:06 04:08 Temperature Pulse Rate 62 59 L 57 L Respiratory Rate Blood Pressure Blood Pressure [Left] O2 Sat by Pulse 95 94 96 Oximetry 05/25/19 05/25/19 05/25/19 04:12 04:13 04:18 Temperature Pulse Rate 61 61 58 L Respiratory Rate Blood Pressure Blood Pressure [Left] O2 Sat by Pulse 94 95 95 Oximetry 05/25/19 05/25/19 05/25/19 04:23 04:24 04:26 Temperature Pulse Rate 60 60 68 Respiratory Rate Blood Pressure 107/67 Blood Pressure [Left] O2 Sat by Pulse 95 94 Oximetry 05/25/19 05/25/19 05/25/19 04:28 04:31 04:33 Temperature Pulse Rate 59 L 61 59 L Respiratory Rate Blood Pressure Blood Pressure [Left] O2 Sat by Pulse 95 94 95 Oximetry 05/25/19 05/25/19 05/25/19 04:38 04:43 04:48 Temperature Pulse Rate 60 76 64 Respiratory Rate Blood Pressure Blood Pressure [Left] O2 Sat by Pulse 95 95 95 Oximetry 05/25/19 05/25/19 05/25/19 04:50 04:53 04:58 Temperature Pulse Rate 63 65 65 Respiratory Rate Blood Pressure 105/56 Blood Pressure [Left] O2 Sat by Pulse 94 96 96 Oximetry 05/25/19 05/25/1920 05:03 05:08 05:13 Temperature Pulse Rate 60 60 60 Respiratory Rate Blood Pressure Blood Pressure [Left] O2 Sat by Pulse 95 96 96 Oximetry 05/25/19 05/25/19 05/25/19 05:18 05:24 05:28 Temperature Pulse Rate 84 82 62 Respiratory Rate Blood Pressure 109/57 Blood Pressure [Left] O2 Sat by Pulse 97 97 Oximetry 05/25/19 05/25/19 05/25/19 05:29 05:34 05:39 Temperature Pulse Rate 66 62 68 Respiratory Rate Blood Pressure Blood Pressure [Left] O2 Sat by Pulse 96 95 96 Oximetry 05/25/19 05/25/19 05/25/19 05:44 05:49 05:54 Temperature Pulse Rate 73 65 77 Respiratory Rate Blood Pressure Blood Pressure [Left] O2 Sat by Pulse 97 96 97 Oximetry 05/25/19 05/25/19 05/25/19 05:56 05:59 06:04 Temperature Pulse Rate 72 75 74 Respiratory Rate Blood Pressure 119/67 Blood Pressure [Left] O2 Sat by Pulse 97 97 Oximetry 05/25/19 05/25/19 05/25/19 06:05 06:11 06:22 Temperature 97.5 F L Pulse Rate 73 73 60 Respiratory 18 Rate Blood Pressure 125/71 Blood Pressure 125/71 [Left] O2 Sat by Pulse 96 98 Oximetry 05/25/19 05/25/19 05/25/19 06:26 06:27 06:32 Temperature Pulse Rate 68 75 84 Respiratory Rate Blood Pressure 125/70 Blood Pressure [Left] O2 Sat by Pulse 97 97 Oximetry 05/25/19 05/25/19 05/25/19 06:37 06:42 06:47 Temperature Pulse Rate 82 73 67 Respiratory Rate Blood Pressure Blood Pressure [Left] O2 Sat by Pulse 97 98 98 Oximetry 05/25/19 05/25/19 05/25/19 06:52 06:57 07:02 Temperature Pulse Rate 63 74 66 Respiratory Rate Blood Pressure 134/70 Blood Pressure [Left] O2 Sat by Pulse 97 97 97 Oximetry 05/25/19 05/25/19 05/25/19 07:07 07:12 07:17 Temperature Pulse Rate 72 70 74 Respiratory Rate Blood Pressure Blood Pressure [Left] O2 Sat by Pulse 97 98 96 Oximetry 05/25/19 05/25/1920 07:22 07:26 07:27 Temperature Pulse Rate 80 74 78 Respiratory Rate Blood Pressure 132/80 Blood Pressure [Left] O2 Sat by Pulse 97 95 Oximetry 05/25/19 05/25/19 05/25/19 07:42 07:47 07:52 Temperature Pulse Rate 73 62 77 Respiratory Rate Blood Pressure Blood Pressure [Left] O2 Sat by Pulse 100 100 100 Oximetry 05/25/19 05/25/19 05/25/19 07:57 07:59 08:02 Temperature Pulse Rate 62 64 65 Respiratory Rate Blood Pressure 118/71 Blood Pressure [Left] O2 Sat by Pulse 100 100 Oximetry 05/25/19 05/25/19 05/25/19 08:07 08:12 08:17 Temperature Pulse Rate 58 L 60 52 L Respiratory Rate Blood Pressure Blood Pressure [Left] O2 Sat by Pulse 100 100 100 Oximetry 05/25/19 05/25/19 05/25/19 08:22 08:26 08:27 Temperature Pulse Rate 54 L 59 L 72 Respiratory Rate Blood Pressure 101/60 Blood Pressure [Left] O2 Sat by Pulse 100 100 Oximetry 05/25/19 05/25/19 05/25/19 08:32 08:39 08:44 Temperature Pulse Rate 68 78 71 Respiratory Rate Blood Pressure Blood Pressure [Left] O2 Sat by Pulse 99 99 99 Oximetry 05/25/19 05/25/19 05/25/19 08:49 08:54 08:56 Temperature Pulse Rate 60 72 66 Respiratory Rate Blood Pressure 133/65 Blood Pressure [Left] O2 Sat by Pulse 100 100 Oximetry 05/25/19 05/25/19 05/25/19 08:59 09:10 09:15 Temperature Pulse Rate 69 68 58 L Respiratory Rate Blood Pressure Blood Pressure [Left] O2 Sat by Pulse 99 96 100 Oximetry 05/25/19 05/25/19 05/25/19 09:20 09:25 09:27 Temperature Pulse Rate 60 58 L 61 Respiratory Rate Blood Pressure 103/64 Blood Pressure [Left] O2 Sat by Pulse 100 100 Oximetry 05/25/19 05/25/19 05/25/19 09:28 09:30 09:35 Temperature Pulse Rate 65 61 66 Respiratory Rate Blood Pressure Blood Pressure [Left] O2 Sat by Pulse 89 100 100 Oximetry 05/25/19 05/25/19 05/25/19 09:40 09:45 09:50 Temperature Pulse Rate 66 65 65 Respiratory Rate Blood Pressure Blood Pressure [Left] O2 Sat by Pulse 100 100 98 Oximetry 05/25/19 05/25/19 05/25/19 09:55 10:23 10:28 Temperature Pulse Rate 69 64 65 Respiratory Rate Blood Pressure Blood Pressure [Left] O2 Sat by Pulse 98 97 98 Oximetry 05/25/19 05/25/19 05/25/19 10:40 10:45 10:50 Temperature Pulse Rate 64 64 75 Respiratory Rate Blood Pressure Blood Pressure [Left] O2 Sat by Pulse 97 97 97 Oximetry 05/25/19 05/25/19 05/25/19 10:55 11:00 11:05 Temperature Pulse Rate 72 62 58 L Respiratory Rate Blood Pressure Blood Pressure [Left] O2 Sat by Pulse 98 98 98 Oximetry 05/25/19 05/25/19 05/25/19 11:10 11:15 11:20 Temperature Pulse Rate 73 66 74 Respiratory Rate Blood Pressure Blood Pressure [Left] O2 Sat by Pulse 99 98 99 Oximetry 05/25/19 11:25 Temperature Pulse Rate 72 Respiratory Rate Blood Pressure Blood Pressure [Left] O2 Sat by Pulse 98 Oximetry - Exam FHR: category 1 FHR comments: 120s Uterine Contraction Duration: q 2 min - Labs Labs: Abnormal Labs 05/23/19 05/24/19 05/24/19 16:25 00:17 06:35 RDW Plt Count 103 L Magnesium 6.00 H 6.80 H 05/24/19 05/24/19 05/24/19 12:37 19:44 19:44 RDW 15.5 H Plt Count 104 L Magnesium 6.90 H 4.40 H Laboratory Results - last 24 hr 05/24/19 05/24/19 05/24/19 12:37 19:44 19:44 WBC 10.2 RBC 4.19 Hgb 12.1 Hct 35.7 MCV 85 MCH 29 MCHC 34 RDW 15.5 H Plt Count 104 L Magnesium 6.90 H 4.40 H Blood Type Antibody Screen 05/24/19 19:50 WBC RBC Hgb Hct MCV MCH MCHC RDW Plt Count Magnesium Blood Type O POSITIVE Antibody Screen Negative
[2019-05-25] MEDS: LACTATED RINGERS 1,000 ML IV SCH ×2 (14:17→15:55)
[2019-05-25] MEDS ORDERED: DEXMEDETOMIDINE 200 MCG/2 ML VIAL IV ONE (15:22)
[2019-05-25] MEDS ORDERED: ePHEDrine SULFATE 50 MG/1 ML INJ IV PRN (15:28)
[2019-05-25] MEDS ORDERED: NALOXONE 2 MG/2 ML INJ IV PRN (15:28)
--- NOTE | 2019-05-25 15:28 | Anesthesia Consultation ---
Anesthesia Consult and Med Hx Date of service: 05/25/19 - Airway Anesthetic Teeth Evaluation: Good ROM Head & Neck: Adequate Mental/Hyoid Distance: Adequate Mallampati Class: Class II Intubation Access Assessment: Probably Good - Pulmonary Exam CTA: Yes - Cardiac Exam Cardiac Exam: RRR - Pre-Operative Health Status ASA Pre-Surgery Classification: ASA2 Proposed Anesthetic Plan: Epidural - Pulmonary Hx Asthma: No Hx Pneumonia: No - Cardiovascular System Hx Hypertension: No - Central Nervous System Hx Seizures: No Hx Psychiatric Problems: No - Endocrine Hx Renal Disease: No Hx Hypothyroidism: No Hx Hyperthyroidism: No - Hematic Hx Anemia: No Hx Sickle Cell Disease: No - Other Systems Hx Alcohol Use: No
[2019-05-25] MEDS: fentaNYL-BUPIV 2 MCG/ML-0.125% 200 MCG/100 ML BAG EPIDURAL SCH (17:27)
[2019-05-26] MEDS: AMPICILLIN/NS 1 GM/50 ML 1 GM/50 ML BAG IV SCH (00:06)
[2019-05-26] MEDS: LACTATED RINGERS 1,000 ML IV SCH (00:39)
[2019-05-26] MEDS: fentaNYL-BUPIV 2 MCG/ML-0.125% 200 MCG/100 ML BAG EPIDURAL SCH (00:43)
[2019-05-26] MEDS: OXYTOCIN 20 UNIT/1000ML DRIP 20 UNITS/1,000 ML BAG IV SCH ×2 (01:48→03:21)
[2019-05-26] MEDS ORDERED: PROMETHAZINE 25 MG RECT SUPP PR PRN (02:02)
[2019-05-26] MEDS ORDERED: HYDROcodone/ACETAMINOPHEN 5-325 MG TAB PO PRN (02:02)
[2019-05-26] MEDS ORDERED: LANOLIN/ZINC/DIMETHICONE (LANSINOH) 7 GM TP PRN (02:02)
[2019-05-26] MEDS ORDERED: diphenhydrAMINE 25 MG CAP PO PRN (02:02)
[2019-05-26] MEDS ORDERED: PROMETHAZINE 25 MG TAB PO PRN (02:02)
[2019-05-26] MEDS ORDERED: WITCH HAZEL/ GLYCERIN PAD TP PRN (02:02)
--- NOTE | 2019-05-26 02:12 | Procedure Note ---
OB Delivery Note - Delivery Date of Delivery: 05/26/19 (0147) Surgeon: CHRIS MARLOW Estimated blood loss: 200cc - Vaginal Delivery presentation: vertex Delivery position: OA Intrapartum events: labor-<37 weeks Delivery induction: none Delivery augmentation: rupture of membranes (AROM of a large amount of blood- stained fluids @ 0103) Delivery monitor: external FHT, external uterine Route of delivery: Delivery placenta: spontaneous Delivery cord: nuchal cord Episiotomy: none Delivery laceration: none Anesthesia: epidural Delivery comments: of a live 5'9 male infant over a intact perineum with Apgars of 8 and 9 at 0147 on 05/26/2019 under epidural anesthesia. Tight nuchal cord x 1 manually reduced with delivery of body. directly to maternal abd/chest, skin to skin contact. Spontaneous delivery of placenta complete and intact with Rosario side presenting at 0150. Fundus is firm and midline located 4 below the U. Lochia is scant. Delayed cord clamping and cutting; Cord cut by the patient/mother. GBS prohylaxis x 6. Placenta to pathology. - A at 1 minute: 8 at 5 minutes: 9 Infant Gender: Male (5'9)
[2019-05-26] MEDS: IBUPROFEN 600 MG TAB PO SCH ×4 (05:21→22:18)
[2019-05-26] MEDS: PRENATAL VIT27-FE FUMARATE-FOLIC ACID VIT TAB PO SCH (12:12)
[2019-05-26 14:16] LABS: Hematocrit 31.1 % (30.3-42.9); Hemoglobin 10.7 gm/dl (10.1-14.3)
--- NOTE | 2019-05-26 17:48 | Post Anesthesia Evaluation ---
- Post Anesthesia Evaluation Patient Participated: Yes Airway Patent: Yes Stable Respiratory Function: Yes Nausea/Vomiting: No Temp > 96.8F: Yes Pain Manageable: Yes Adequeate Hydration: Yes Anesthesia Complications: No Block Receding Appropriately: Yes
[2019-05-27] MEDS: IBUPROFEN 600 MG TAB PO SCH ×2 (05:43→12:00)
[2019-05-27] MEDS: PRENATAL VIT27-FE FUMARATE-FOLIC ACID VIT TAB PO SCH (09:13)
--- NOTE | 2019-05-27 10:37 | Progress Note ---
Assessment and Plan - Patient Problems (1) spontaneous labor with delivery Current Visit: Yes Status: Acute Qualifiers: Fetus number: single or unspecified fetus Qualified Code(s): O60.10X0 - labor with delivery, unspecified trimester, not applicable or unspecified Plan to address problem: D/C home today F/U at office in 6 wks for routine PP visit (2) Anemia Current Visit: Yes Status: Acute Qualifiers: Anemia type: other cause Other causes of anemia: acute posthemorrhagic Qualified Code(s): D62 - Acute posthemorrhagic anemia Plan to address problem: Asymptomatic Increase iron rich foods into diet Subjective - Subjective Date of service: 05/27/19 Principal diagnosis: S/P delivery Interval history: See admission H & P; OB delivery summary and PP progress notes Patient reports: appetite normal, voiding normally, pain well controlled, flatus, ambulating normally, other (Desires to go home today) [place]: in NICU Objective - Vital Signs Latest vital signs: Vital Signs Temp Pulse Resp BP BP Pulse Ox 05/27/19 07:41 98.3 F 50 L 20 119/68 98 05/27/19 00:40 98.1 F 18 122/63 05/26/19 23:18 59 L 05/26/19 23:05 98.1 F 18 122/63 05/26/19 19:59 98.1 F 55 L 18 132/74 99 05/26/19 15:31 98.0 F 55 L 18 117/59 97 Intake and Output 05/26/19 05/27/19 05/27/19 23:59 07:59 15:59 Intake Total 400 810 Balance 400 810 Intake: Oral 400 710 Intake, Free Water 100 Other: Total, Intake Amount 200 350 # Voids Void 1 1 1 - Exam Breasts: Present: normal Cardiovascular: Present: Regular rate Lungs: Present: Normal air movement Abdomen: Present: soft Uterus: Present: firm, fundal height below umbilicus (U-4) Extremities: Present: normal Deep Tendon Reflex Grade: Normal +2
--- NOTE | 2019-05-27 10:43 | Discharge Summary ---
Providers - Providers Date of Admission: 05/23/19 15:37 Date of discharge: 05/27/19 (1200) Attending physician: RODERICK MATRINEZ MD Primary care physician: RODERICK MARTINEZ MD Hospitalization Reason for admission: active labor, IUP - Delivery: Episiotomy: none Laceration: none Other procedures: none complications: none Discharge diagnosis: delivery baby: male Hospital course: See admission H & P; OB delivery summary and PP progress notes Condition at discharge: Good Disposition: DC-01 TO HOME OR SELFCARE - Discharge Diagnoses (1) spontaneous labor with delivery Status: Acute Qualifiers: Fetus number: single or unspecified fetus Qualified Code(s): O60.10X0 - labor with delivery, unspecified trimester, not applicable or unspecified (2) Anemia Status: Acute Qualifiers: Anemia type: other cause Other causes of anemia: acute posthemorrhagic Qualified Code(s): D62 - Acute posthemorrhagic anemia Plan - Provider Discharge Summary Activity: routine, no sex for 6 weeks, no heavy lifting 4 weeks, no strenuous exercise Diet: other (Iron rich diet) Instructions: routine Additional instructions: [] Smoking cessation referral if applicable(refer to patient education folder for contact #) [] Refer to [facility]'s [facility] Booklet Call your doctor immediately for: * Fever > 100.5 * Heavy vaginal bleeding ( >1 pad per hour) * Severe persistent headache * Shortness of breath * Reddened, hot, painful area to leg or breast - Follow up plan Follow up: RODERICK MARTINEZ MD [Primary Care Provider] - 6 Weeks
[2019-05-27 13:08] VITALS: BP 124/69
== END 2019-05-27 14:00 | disposition home or self-care (01) | DRG 806 ==
LOC: TRG 15:36 → OBSVTOIN 15:37 → LD 15:37 → APU 15:37 → TRG 16:55 → OB 05-26 04:37
PROVIDERS: ADMIT Obstetrics & Gynecology; ATTEND Obstetrics & Gynecology
PROC: 10E0XZZ Delivery of Products of Conception, External Approach (ICD-10-PCS; principal; 2019-05-26)
PROC: 3E0R3BZ Introduction of Anesthetic Agent into Spinal Canal, Percutaneous Approach (ICD-10-PCS; 2019-05-26)
PROC: 00HU33Z Insertion of Infusion Device into Spinal Canal, Percutaneous Approach (ICD-10-PCS; 2019-05-26)
DX: O60.14X0 Preterm labor third trimester with preterm delivery third trimester, not applicable or unspecified (principal); D62 Acute posthemorrhagic anemia; Z37.0 Single live birth; O90.81 Anemia of the puerperium; O69.1XX0 Labor and delivery complicated by cord around neck, with compression, not applicable or unspecified; Z3A.34 34 weeks gestation of pregnancy
CPT/HCPCS: 36415; 59025; 76815; 81001; 83735; 85014; 85018; 85025; 85027; 86850; 86900; 86901; 87086; 87116; 88307; G0378; J0290; J0595; J0702; J2405; J2590; J3105; J3475; J3490; J7120

== ENCOUNTER 2019-12-23 10:58 | Emergency (ER) | payer SELFPAY ==
--- NOTE | 2019-12-23 12:15 | Event Note ---
ED Screening Note Date of service: 12/23/19 Time: 12:14 ED Screening Note: 39-year-old female comes in with epigastric worsening pain. Was told that she had gallbladder stones. This initial assessment/diagnostic orders/clinical plan/treatment(s) is/are subject to change based on patients health status, clinical progression and re- assessment by fellow clinical providers in the ED. Further treatment and workup at subsequent clinical providers discretion. Patient/guardian urged not to elope from the ED as their condition may be serious if not clinically assessed and managed. Initial orders include:
[2019-12-23 12:17] LABS: Basophils % (Auto) 0.3 % (0.0-1.8); Eosinophils # (Auto) 0.3 K/mm3 (0.0-0.4); Eosinophils % (Auto) 2.7 % (0.0-4.3); Hematocrit 40.3 % (30.3-42.9); Hemoglobin 13.5 gm/dl (10.1-14.3); Lymphocytes # (Auto) 0.9 K/mm3 (1.2-5.4); Mean Corpuscular HGB Conc 34 % (30-34); Mean Corpuscular Volume 87 fl (79-97); Monocytes # (Auto) 0.6 K/mm3 (0.0-0.8); Monocytes % (Auto) 6.6 % (0.0-7.3); Platelet Count 377 K/mm3 (140-440); Red Blood Count 4.63 M/mm3 (3.65-5.03); Red Cell Distribution Width 14.4 % (13.2-15.2)
[2019-12-23 12:34] LABS: Alanine Aminotransferase 60 units/L (7-56); Blood Urea Nitrogen 7 mg/dL (7-17); Calcium 9.6 mg/dL (8.4-10.2); Hemolysis Index 4
[2019-12-23 12:35] LABS: BUN/Creatinine Ratio 10
--- NOTE | 2019-12-23 16:04 | Emergency Department Report ---
ED Abdominal Pain HPI - General Chief Complaint: Abdominal Pain Stated Complaint: ABD PAIN Time Seen by Provider: 12/23/19 11:41 Source: patient Mode of arrival: Ambulatory Limitations: Language Barrier - History of Present Illness Initial Comments: 39-year-old female resents emerged department complaining of severe pain to the right upper quadrant for the last few days states she was [facility] was diagnosed with gallstones and treated accordingly with an unknown medication but she taken medication as prescribed and states the symptoms are worsening. She reports a few mild episodes of vomiting but no diarrhea no fever, chills, sweats no chest pain or palpitations. No abdominal trauma. MD Complaint: abdominal pain -: Gradual Location: RUQ Radiation: RUQ Migration to: RUQ Severity: mild Quality: dull Consistency: constant Improves With: nothing Worsens With: nothing Associated Symptoms: nausea, vomiting. denies: constipation, dysuria, hematuria, anorexia, syncope - Related Data Previous Rx's Medication Instructions Recorded Last Taken Type Hyoscyamine Subl [Levsin Sl 0.125 0.125 mg SL Q4HR PRN #30 tablet 12/23/19 Unknown Rx TAB] traMADoL [Ultram] 50 mg PO Q6HR PRN #20 tablet 12/23/19 Unknown Rx Allergies Allergy/AdvReac Type Severity Reaction Status Date / Time No Known Allergies Allergy Unverified 05/23/19 15:56 ED Review of Systems ROS: Stated complaint: ABD PAIN Other details as noted in HPI Comment: All other systems reviewed and negative ED Past Medical Hx - Past Medical History Previous Medical History?: Yes Hx Hypertension: No Hx Diabetes: No Hx Deep Vein Thrombosis: No Hx Renal Disease: No Hx Sickle Cell Disease: No Hx Seizures: No Hx Asthma: No Hx HIV: No Additional medical history: Gallstones - Surgical History Past Surgical History?: No - Social History Smoking Status: Never Smoker Substance Use Type: None - Medications Home Medications: Home Medications Medication Instructions Recorded Confirmed Last Taken Type Hyoscyamine Subl [Levsin Sl 0.125 0.125 mg SL Q4HR PRN #30 tablet 12/23/19 Unknown Rx TAB] traMADoL [Ultram] 50 mg PO Q6HR PRN #20 tablet 12/23/19 Unknown Rx ED Physical Exam - General Limitations: Language Barrier General appearance: alert, in no apparent distress - Head Head exam: Present: atraumatic, normocephalic - Eye Eye exam: Present: normal appearance, PERRL Pupils: Present: normal accommodation - ENT ENT exam: Present: normal exam, normal orophraynx, mucous membranes moist, TM's normal bilaterally - Neck Neck exam: Present: normal inspection, full ROM - Respiratory Respiratory exam: Present: normal lung sounds bilaterally. Absent: respiratory distress - Cardiovascular Cardiovascular Exam: Present: regular rate, normal rhythm. Absent: systolic murmur, diastolic murmur, rubs, gallop - GI/Abdominal GI/Abdominal exam: Present: soft, tenderness (Right upper quadrant), normal bowel sounds. Absent: hypoactive bowel sounds, organomegaly, mass - Extremities Exam Extremities exam: Present: normal inspection - Back Exam Back exam: Present: normal inspection. Absent: CVA tenderness (R), CVA tenderness (L) - Neurological Exam Neurological exam: Present: alert, oriented X3, CN II-XII intact - Psychiatric Psychiatric exam: Present: normal affect, normal mood - Skin Skin exam: Present: warm, dry, intact, normal color. Absent: rash ED Course Vital Signs 12/23/19 11:25 Temperature 97.6 F Pulse Rate 98 H Respiratory 20 Rate Blood Pressure 135/79 O2 Sat by Pulse 98 Oximetry ED Medical Decision Making - Lab Data Result diagrams: 12/23/19 11:32 12/23/19 11:32 - Radiology Data Radiology results: report reviewed [facility] [address] [place] [address] Ultrasound Report Signed Patient: CARMEL SIGALA MR#: [id number] : 1980 Acct:[id number] Age/Sex: 39 / F ADM Date: 12/23/19 Loc: ED Attending Dr: Ordering Physician: TINA EARLY Date of Service: 12/23/19 Procedure(s): US abdomen limited Accession Number(s): [id number] cc: TINA EARLY LIMITED RUQ ABDOMINAL ULTRASOUND INDICATION / CLINICAL INFORMATION: ruq pain and vomiting. COMPARISON: No relevant prior imaging study available. FINDINGS: PANCREAS: Visualized portions show no significant abnormality. ABDOMINAL AORTA: No significant abnormality. IVC: No significant abnormality. LIVER: No significant abnormality. GALLBLADDER: Multiple gallstones are present within the lumen of the gallbladder, to include 1 cm stone near the gallbladder neck. The gallbladder is mildly distended. No significant gallbladder wall thickening. There is suggestion of pericholecystic fluid. Sonographic Osullivan's sign is reportedly positive. BILE DUCTS: No significant abnormality. Common bile duct measures 2 mm. RIGHT KIDNEY: No significant abnormality visualized. FREE FLUID: None. ADDITIONAL FINDINGS: Main portal vein is patent. IMPRESSION: 1. Cholelithiasis, to include 1 cm gallstone near the neck of the gallbladder. While the wall of the gallbladder is not significantly thickened, there is gallbladder distention with suggestion of pericholecystic fluid and reportedly positive sonographic Osullivan sign. These findings are concerning for cholecystitis. 2. Normal common bile duct. Signer Name: Manpreet Garcia MD Signed: 12/23/2019 6:03 PM Workstation Name: [id number] Transcribed By: EPHRAIM Dictated By: MANPREET MEDEIROS MD Electronically Authenticated By: MANPREET MEDEIROS MD Signed Date/Time: 12/23/191802 DD/ 58 TD/TT: - Medical Decision Making 39-year-old Croatian-speaking female (counselling psychologist was used [place]) presents to the emergency department complaining of continued right upper quadrant pain which is been going on for last 10 days she was seen at [facility] on 17 December diagnosed with gallstones and advised to go see general surgery which she was reluctant to do until today when her pain had reemerged. She went to the office seeking to be seen and they advised her that no appointment so she came to the emergency department. The ultrasound did show continue gallstones 1 cm noted in the neck with no significant findings for Gayle cystitis but did have some concerns for cholecystitis. Her white count was normal total bili and her liver enzymes were normal with alk phos being slightly elevated. The case was discussed in great detail with the general surgeon who advised the need for a HIDA scan. Currently she is a febrile no acute distress pain is 100% controlled she is tolerating oral with no complications so I did discuss with her in great detail the need for her to follow-up with general surgery or GI for the HIDA scan and advised her of the likelihood that the pain may reemerge but gave her signs and symptoms to follow-up on and advised on when to return to the emergency dep artment. She is currently taking Flagyl and ciprofloxacin along with Zofran I will add Levsin and a few Ultram as well. We discussed the plan in great great detail and she did express a complete understanding with no further questions. The counselling psychologist was was present during the entire dialogue Critical care attestation.: If time is entered above; I have spent that time in minutes in the direct care of this critically ill patient, excluding procedure time. ED Disposition Clinical Impression: Biliary colic, Abdominal pain Disposition: TO HOME OR SELFCARE Is pt being admited?: No Does the pt Need Aspirin: No Condition: Stable Instructions: Abdominal Pain (ED), Abdominal Pain, Adult, [id number], Biliary Colic, Adult, Gallbladder Nuclear Scan Additional Instructions: Please remember you do need to get a HIDA scan to further evaluate your gallbladder Prescriptions: Hyoscyamine Subl [Levsin Sl 0.125 TAB] 0.125 mg SL Q4HR PRN #30 tablet PRN Reason: Spasms traMADoL [Ultram] 50 mg PO Q6HR PRN #20 tablet PRN Reason: Pain Referrals: SIXTO SINGLETON DO [Staff Physician] - 3-5 Days
[2019-12-23 16:11] LABS: Bilirubin,Urine NEG (Negative); Blood,Urine SM (Negative); Color,Urine Yellow (Yellow); Mucus,Urine FEW /HPF; Urobilinogen,Urine < 2.0 mg/dL (<2.0)
[2019-12-23] MEDS ORDERED: ONDANSETRON 4 MG/2 ML INJ ONE (16:25)
[2019-12-23] MEDS ORDERED: MORPHINE 4 MG/1 ML INJ ONE (16:26)
[2019-12-23 16:29] LABS: HCG Qualitative,Urine Negative (Negative)
[2019-12-23] MEDS ORDERED: ONDANSETRON 4 MG/2 ML INJ IV ONE (16:50)
[2019-12-23] MEDS ORDERED: MORPHINE 4 MG/1 ML INJ IV ONE (16:50)
--- NOTE | 2019-12-23 18:08 | Ultrasound Report ---
LIMITED RUQ ABDOMINAL ULTRASOUND INDICATION / CLINICAL INFORMATION: ruq pain and vomiting. COMPARISON: No relevant prior imaging study available. FINDINGS: PANCREAS: Visualized portions show no significant abnormality. ABDOMINAL AORTA: No significant abnormality. IVC: No significant abnormality. LIVER: No significant abnormality. GALLBLADDER: Multiple gallstones are present within the lumen of the gallbladder, to include 1 cm sto ne near the gallbladder neck. The gallbladder is mildly distended. No significant gallbladder wall th ickening. There is suggestion of pericholecystic fluid. Sonographic Osullivan's sign is reportedly posit neli. BILE DUCTS: No significant abnormality. Common bile duct measures 2 mm. RIGHT KIDNEY: No significant abnormality visualized. FREE FLUID: None. ADDITIONAL FINDINGS: Main portal vein is patent. IMPRESSION: 1. Cholelithiasis, to include 1 cm gallstone near the neck of the gallbladder. While the wall of the gallbladder is not significantly thickened, there is gallbladder distention with suggestion of perich olecystic fluid and reportedly positive sonographic Osullivan sign. These findings are concerning for ch olecystitis. 2. Normal common bile duct. Signer Name: Josemanuel Garcia MD Signed: 12/23/2019 6:03 PM Workstation Name: [id number]
[2019-12-23 18:54] VITALS: BP 144/76
[2019-12-23] MEDS ORDERED: KETOROLAC 30 MG/1 ML INJ IV STA (19:01)
[2019-12-23] MEDS ORDERED: KETOROLAC 30 MG/1 ML INJ ONE (19:01)
== END 2019-12-23 19:09 | disposition home or self-care (01) ==
LOC: ED 10:58
DX: K80.50 Calculus of bile duct without cholangitis or cholecystitis without obstruction (principal)
CPT/HCPCS: 36415; 76705; 80053; 81001; 81025; 83690; 85025; 96374; 96375; 99283; J1885; J2270; J2405